=== PATIENT | female | born 1975 | race Caucasian/White ===

== ENCOUNTER 2021-07-01 13:43 | Emergency (ER) | payer OTHER ==
[~2021-07-01] VITALS: Ht 170.2 cm; Wt 60.8 kg
[~2021-07-01 13:43] MED LIST: CLEOCIN HCL300 MG PO; LEVAQUIN 500 M500 MG PO; NOHOMEMEDICATIONS; NORCO 5-325 TA1 EACH PO
[2021-07-01 14:11] VITALS: BP 135/87
[2021-07-01] MEDS ORDERED: TYLENOL325 M1 PO (17:06)
[2021-07-01] MEDS ORDERED: AZITHROMYCIN500 MG PO (17:06)
[2021-07-01] MEDS ORDERED: PROAIR HFA8.5 GM INH (17:06)
== END 2021-07-01 17:33 | disposition home or self-care (01) ==
LOC: ER 13:43
PROVIDERS: Emergency Medicine
DX: J40 Bronchitis, not specified as acute or chronic (principal); Z20.822 Contact with and (suspected) exposure to COVID-19; R09.81 Nasal congestion; F12.90 Cannabis use, unspecified, uncomplicated; F15.10 Other stimulant abuse, uncomplicated; Z98.890 Other specified postprocedural states; Z88.8 Allergy status to other drugs, medicaments and biological substances; Z88.1 Allergy status to other antibiotic agents